=== PATIENT | female | born 1990 | race Caucasian/White ===

== ENCOUNTER 2023-02-04 13:14 | Outpatient (CLI) | payer BC, SELFPAY | END 2023-02-04 13:15 | disposition home or self-care (01) | LOC: LKVREF 13:17 | PROVIDERS: Visit Provider Nurse Practitioner Family | DX: Z00.00 Encounter for general adult medical examination without abnormal findings (principal); R11.2 Nausea with vomiting, unspecified | CPT/HCPCS: 82150 ==